=== PATIENT | female | born 1990 | race Caucasian/White ===

== ENCOUNTER 2019-11-03 07:41 | Emergency (ER) | payer BC ==
[~2019-11-03] VITALS: Ht 170.2 cm; Wt 79.0 kg
[2019-11-03 10:23] LABS: CHLORIDE 104 mEq/L (98-107)
[2019-11-03 10:45] LABS: B-HCG QUANTITATIVE 91880 mIU/mL (<3)
[2019-11-03] MEDS ORDERED: RHO(D) IMMUNE GLOBULIN 300 MCG/SYR IM ONE (11:15)
[2019-11-03 11:30] LABS: BASOPHILS % 0.4 % (0.0-2.0); EOSINOPHILS % 0.6 % (0.0-5.0); HEMATOCRIT. 40.6 % (36.0-48.0); HEMOGLOBIN. 13.9 g/dL (12.0-16.0); LYMPHOCYTES % 13.7 % (20.0-50.0); MEAN CORPUSCULAR HEMOGLOBIN 31.6 pg (28.0-32.0); MEAN CORPUSCULAR VOLUME 92.6 fL (81.0-99.0); MEAN PLATELET VOLUME 8.5 fl (7.4-10.4); MONOCYTES % 5.3 % (2.0-8.0); PLATELET 292 x1000/uL (130-400); RED BLOOD CELL COUNT 4.38 mill/uL (4.2-5.4); RED CELL DISTRIBUTION WIDTH 13.1 % (11.6-14.6)
[2019-11-03 12:40] VITALS: BP 108/65
== END 2019-11-03 12:43 | disposition home or self-care (01) ==
LOC: ER 07:41
DX: O26.891 Other specified pregnancy related conditions, first trimester (principal); Z00.00 Encounter for general adult medical examination without abnormal findings; O36.0110 Maternal care for anti-D [Rh] antibodies, first trimester, not applicable or unspecified; Z23 Encounter for immunization; O46.91 Antepartum hemorrhage, unspecified, first trimester; Z79.899 Other long term (current) drug therapy; Z3A.13 13 weeks gestation of pregnancy; Z96.659 Presence of unspecified artificial knee joint; Z98.890 Other specified postprocedural states
CPT/HCPCS: 36415; 76801; 80048; 84702; 85025; 86850; 86900; 90384; 90471; 93005; 96372; 99284